=== PATIENT | female | born 1975 | race Caucasian/White ===

== ENCOUNTER 2017-07-13 07:11 | Day surgery (SDC) | payer OTHER ==
[2017-07-13] VITALS (17 sets, daily range): BP systolic 97–128; BP diastolic 51–66; PULSE 48–86; RESP 7–21; Ht 157.5 cm; Wt 60.8 kg
[~2017-07-13] VITALS: Ht 157.5 cm; Wt 60.8 kg
[~2017-07-13 07:11] MED LIST: CIPR500T4 PO; SYN1 PO
[2017-07-13] MEDS ORDERED: LEVO25TA50 PO (08:09)
--- NOTE | 2017-07-13 08:23 | RADRPT ---
PROCEDURE: XR Chest. CLINICAL INDICATION: Preop TECHNIQUE: A single AP view of the chest was obtained. COMPARISON: None. FINDINGS: No focal airspace opacification, pleural effusion or pneumothorax is seen. The cardiomediastinal si lhouette is within normal limits for size. The osseous structures are unremarkable. IMPRESSION: Unremarkable chest x-ray. RPTAT: HH .Rain Dixon MD, MD Date Time Electronically viewed and signed by .Rain Dixon MD, on 07/13/2017 08:22 .G/
[2017-07-13 08:44] LABS: BASOPHILS % 1.1 % (0.0-2.0); EOSINOPHILS # 0.2 10^3/ul (0.0-0.5); EOSINOPHILS % 4.6 % (0.0-7.0); HEMATOCRIT 35.4 % (37.0-47.0); HEMOGLOBIN 12.1 g/dl (12.0-16.0); LYMPHOCYTES # 0.7 10^3/ul (0.8-2.9); LYMPHOCYTES % 18.8 % (15.0-51.0); MEAN CORPUSCULAR HEMOGLOBIN 31.2 pg (29.0-33.0); MEAN CORPUSCULAR HGB CONC 34.2 g/dl (32.0-37.0); MEAN CORPUSCULAR VOLUME 91.2 fl (82.0-101.0); MEAN PLATELET VOLUME 11.3 fl (7.4-10.4); MONOCYTE # 0.4 10^3/ul (0.3-0.9); MONOCYTES % 9.8 % (0.0-11.0); NEUTROPHIL # 2.4 10^3/ul (1.6-7.5); NEUTROPHILS % 65.7 % (39.0-77.0); PLATELET COUNT 239 10^3/UL (140-415); RED BLOOD COUNT 3.88 10^6/ul (4.20-5.40); RED CELL DISTRIBUTION WIDTH 12.1 % (11.5-14.5); WHITE BLOOD COUNT 3.7 10^3/ul (4.8-10.8)
[2017-07-13 09:00] LABS: ALBUMIN 3.9 g/dl (3.3-4.9); ALBUMIN/GLOBULIN RATIO 1.02; BILIRUBIN,INDIRECT 0.4 mg/dl (0-1.1); BILIRUBIN,TOTAL 0.4 mg/dl (0.2-1.3); TOTAL PROTEIN 7.7 g/dl (6.1-8.1)
[2017-07-13 09:06] LABS: CALCIUM 9.1 mg/dl (8.4-10.2); CREATININE 0.81 mg/dl (0.44-1.00); POTASSIUM 4.4 mmol/L (3.5-5.1)
[2017-07-13 09:07] LABS: INR 1.02; PROTIME 13.5 Sec (11.9-14.9); PT RATIO 1.1
[2017-07-13 09:08] LABS: PARTIAL THROMBOPLASTIN TIME 31.6 Sec (25.0-35.0)
[2017-07-13 09:16] LABS: HOLD TRANSMISSIONS 1
[2017-07-13] MEDS ORDERED: MIDAZOLAM 1 MG/ML 2 ML INJ ONE (09:45)
--- NOTE | 2017-07-13 10:39 | PD.PPDC ---
CORPORATE DEVELOPMENT OFFICER Discharge Instruction Diagnosis Final Diagnosis: menorrhagia Condition Patient Condition: Stable Diet Diet: Resume Regular Diet Activity/Restrictions Activity: May Shower Restrictions: No Sexual Activity Nothing in the Vagina No [place] No Tampons, douche Follow-up Follow-up with Physician: 2, Week/Weeks Return to clinic for [employer] Instructions: Fever greater than 101 [place] Worsening abdominal pain Excessive Vaginal Bleeding More than 2 pads per hour Unable to tolerate diet MERNA LARA MD Jul 13, 2017 10:39
--- NOTE | 2017-07-13 10:44 | SIPON ---
Date/Time of Note Date/Time of Note DATE: 07/13/17 TIME: 10:41 Operative Report Preoperative Diagnosis menorrhagia Postoperative Diagnosis same as above Operation/Procedure Performed hysteroscopy endometrial ablation (hydrothermal) Surgeon see signature line graphic design assistant rep Pinger Anesthesia: general Estimated blood loss: none Transfusion Required none Specimen none Grafts/Implants none Complications none MERNA LARA MD Jul 13, 2017 10:44
[2017-07-13] MEDS ORDERED: LIDOCAINE 2% (SDV) 5 ML INJ ONE (10:47)
[2017-07-13] MEDS ORDERED: CEFAZOLIN 1 GM INJ ONE (10:47)
[2017-07-13] MEDS ORDERED: PROPOFOL 20 ML ONE (10:47)
[2017-07-13] MEDS ORDERED: ONDANSETRON 4 MG INJ ONE (10:48)
[2017-07-13] MEDS ORDERED: HYDROmorphONE (0.2 MG/ML) 10ML SYG IV PRN ×2 (11:00)
[2017-07-13] MEDS ORDERED: ONDANSETRON 4 MG INJ IV PRN (11:00)
[2017-07-13] MEDS ORDERED: DIPHENHYDRAMINE 50 MG INJ IV PRN (11:00)
[2017-07-13] MEDS ORDERED: MEPERIDINE 25 MG INJ IV PRN (11:00)
[2017-07-13] MEDS ORDERED: FENTAnyl 50 MCG/ML VIAL IV PRN (11:00)
[2017-07-13] MEDS ORDERED: METOCLOPRAMIDE 10 MG INJ IV PRN (11:00)
[2017-07-13] MEDS ORDERED: OXYCODONE/ACETAMINOPHEN (5/325) TAB PO ONE ×2 (13:00)
[2017-07-13] MEDS ORDERED: LACTATED RINGER'S 1,000 ML IV* SCH (15:30)
--- NOTE | 2017-07-14 06:28 | OPR ---
DATE OF OPERATION: 07/13/2017 PREOPERATIVE DIAGNOSIS: Menorrhagia. POSTOPERATIVE DIAGNOSIS: Menorrhagia. OPERATION PERFORMED: Hysteroscopy, endometrial ablation, hydrothermal. ANESTHESIA: General. ANESTHESIOLOGIST: Dr. Baca. SURGEON: Brian Godwin MD SAFETY AND SECURITY OFFICER: Andrew from [employer]. ESTIMATED BLOOD LOSS: None. PROCEDURE: Under the proper induction of general anesthesia, the patient was placed in dorsal litho ayaka position. The perineal area and vaginal wall were prepped and draped in usual aseptic manner. On inspection, external genitalia revealed no gross abnormality. On bimanual examination, uterus f elt to be normal size and normal consistency, freely mobile. There is no palpable adnexal pathology . Weighted speculum was introduced, the cervix identified. Anterior lip of the cervix was grasped with a single tooth tenaculum and cavity was sounded, which was 8.5 cm, os dilated up to 8, and hyst eroscopy which was attached to the preprogrammed hydrothermal ablation kit, which was connected to t he hysteroscope, and hysteroscope was introduced. The fundus was visualized. was taken and t he entire cavity was within normal. After the pressure check, there was no leak and the temperature went up to 90s for 10 minutes of ablation done with obtaining of good results and 2 minutes of cool ing. After the procedure was completed, all the instruments were removed from the procedure. The p atient withstood the procedure well and was sent to the recovery room in stable condition. Pre and post-ablation, the picture was taken and endocervix was free of the ablation. Estimated blo od loss none. The patient was taken to the recovery room in stable condition. Final sponge count c orrect. Dictated By: BRIAN ELKINS/SRAVAN Conf#: [id number] DID#: [id number]
--- NOTE | 2017-07-14 10:28 | RADRPT ---
Vent Rate: 50 bpm RR Interval: 0 msec VT Interval: 142 msec QRS Duration: 78 msec QT Interval: 448 msec QTC Interval: 408 msec P-R-T [place]: 66 - 21 - 25 degrees Sinus bradycardia Otherwise normal ECG Electronically Signed By: Juarez Seo [id number]
== END 2017-07-13 15:10 | disposition home or self-care (01) ==
LOC: MERGE 07:11 → SDS 07:11
PROVIDERS: ATTEND Obstetrics & Gynecology
DX: N92.0 Excessive and frequent menstruation with regular cycle (principal); D64.9 Anemia, unspecified; E03.9 Hypothyroidism, unspecified
CPT/HCPCS: 58353; 71010; 80053; 84703; 85025; 85610; 85730; 93005; J0690; J2175; J2250; J2405; J3010; Z7512; Z7610